=== PATIENT | male | born 1975 | race African-American/Black ===

== ENCOUNTER 2017-08-13 07:42 | Emergency (ER) | payer BC ==
[2017-08-13] MEDS ORDERED: HYDROCODONE/ACETAMINOPHEN 5-325 MG TABLET PO ONE (08:13)
[2017-08-13] MEDS ORDERED: CLONIDINE HCL 0.2 MG TABLET PO ONE (08:13)
--- NOTE | 2017-08-13 08:20 | ER Document Report ---
ED General - General Chief Complaint: Headache Stated Complaint: HEADACHE Time Seen by Provider: 08/13/17 08:08 Mode of Arrival: Ambulatory Information source: Patient - HPI Patient complains to provider of: headache Onset: Last week Onset/Duration: Intermittent Quality of pain: Dull Associated symptoms: None Exacerbated by: Denies Relieved by: Denies Similar symptoms previously: No Recently seen / treated by doctor: No Notes: Patient is a 42-year-old male with no medical problems. Patient states over the last couple of weeks he has had intermittent headaches that typically occur and resolve spontaneously. Over the last 2 days, the headache seems to be more severe and is not responding to his usual Tylenol. He denies any focal neurologic complaints. No difficulty with speech, vision, or gait. No fevers or chills. No neck pain. Denies prior history of hypertension. - Related Data Allergies/Adverse Reactions: No Known Allergies Allergy (Unverified 08/13/17 07:46) Past Medical History - General Information source: Patient - Social History Smoking Status: Unknown if Ever Smoked Chew tobacco use (# tins/day): No Frequency of alcohol use: None Drug Abuse: None Family History: Reviewed & Not Pertinent Patient has suicidal ideation: No Patient has homicidal ideation: No - Medical History Medical History: Negative Renal/ Medical History: Denies: Hx Peritoneal Dialysis Surgical Hx: Negative Review of Systems - Review of Systems Neurological/Psychological: Headaches -: Yes All other systems reviewed and negative Physical Exam - Vital signs Vitals: Temp Pulse Resp BP Pulse Ox 98.7 F 76 16 174/115 H 100 08/13/17 07:47 08/13/17 07:47 08/13/17 07:47 08/13/17 07:47 08/13/17 07:47 Interpretation: Normal - General General appearance: Appears well, Alert - HEENT Head: Normocephalic, Atraumatic Eyes: Normal Pupils: PERRL - Respiratory Respiratory status: No respiratory distress Chest status: Nontender Breath sounds: Normal Chest palpation: Normal - Cardiovascular Rhythm: Regular Heart sounds: Normal auscultation Murmur: No - Abdominal Inspection: Normal Distension: No distension Bowel sounds: Normal Tenderness: Nontender Organomegaly: No organomegaly - Back Back: Normal, Nontender - Extremities General upper extremity: Normal inspection, Nontender, Normal color, Normal ROM , Normal temperature General lower extremity: Normal inspection, Nontender, Normal color, Normal ROM , Normal temperature, Normal weight bearing. No: Raghu's sign - Neurological Neuro grossly intact: Yes Cognition: Normal Orientation: AAOx4 Poornima Coma Scale Eye Opening: Spontaneous Ballinger Coma Scale Verbal: Oriented Ballinger Coma Scale Motor: Obeys Commands Ballinger Coma Scale Total: 15 Speech: Normal Motor strength normal: LUE, RUE, LLE, RLE Sensory: Normal - Psychological Associated symptoms: Normal affect, Normal mood - Skin Skin Temperature: Warm Skin Moisture: Dry Skin Color: Normal Course - Re-evaluation Re-evalutation: 08/13/17 08:19 Patient is nonfocal neurologic exam. Patient's blood pressure is noted to be elevated. We will treat blood pressure, get head CT, and check basic labs. 08/13/17 09:11 Emergency department workup is unremarkable. Labs and CT are negative. Discussed hypertension with patient. Will start on low-dose antihypertensive medication. Discussed need to follow-up with primary care provider. No indication for further workup at this time. - Vital Signs Vital signs: Temp Pulse Resp BP Pulse Ox 98.7 F 76 16 174/115 H 100 08/13/17 07:47 08/13/17 07:47 08/13/17 07:47 08/13/17 07:47 08/13/17 07:47 - Laboratory Result Diagrams: 08/13/17 08:20 08/13/17 08:20 Laboratory results interpreted by me: 08/13/17 08:20 WBC 3.1 L - Diagnostic Test Radiology reviewed: Reports reviewed Radiology results interpreted by me: 08/13/17 09:11 neg per rads Discharge - Discharge Clinical Impression: Hypertension, Headache Disposition: HOME, SELF-CARE Instructions: Headache ([facility]), High Blood Pressure ([facility]) Additional Instructions: You have been started on a low-dose blood pressure medication. Follow-up with your primary care doctor. He should take your blood pressure every day and keep a log. Return to the emergency department if worse or for any other problems. Prescriptions: Lisinopril/Hydrochlorothiazide [Lisinopril-Hctz 20-12.5 mg Tab] 1 each PO DAILY #30 tablet
[2017-08-13 08:35] LABS: ABSOLUTE MONOCYTES (AUTO) 0.2 10^3/uL (0.1-1.4); ABSOLUTE NEUT (AUTO) 1.9 10^3/uL (1.7-8.2); BASOPHILS % (AUTO) 0.7 % (0-2); EOSINOPHILS % (AUTO) 0.9 % (0-6); HEMATOCRIT 42.4 % (37.9-51.0); HEMOGLOBIN 14.2 g/dL (13.5-17.0); HGB HCT DIFFERENCE 0.2; MEAN CORPUSCULAR HEMOGLOBIN 29.2 pg (27.0-33.4); MEAN CORPUSCULAR HGB CONC 33.5 g/dL (32.0-36.0); MEAN CORPUSCULAR VOLUME 87 fl (80-97); MONOCYTES % (AUTO) 6.7 % (3-13); RED BLOOD COUNT 4.87 10^6/uL (4.35-5.55); RED CELL DISTRIBUTION WIDTH 12.4 % (11.5-14.0); SEGMENTED NEUTROPHILS % (AUTO) 60.7 % (42-78); WHITE BLOOD COUNT 3.1 10^3/uL (4.0-10.5)
[2017-08-13 08:51] LABS: ALANINE AMINOTRANSFERASE 69 U/L (21-72); ALBUMIN 4.5 g/dL (3.5-5.0); ALKALINE PHOSPHATASE 64 U/L (38-126); ANION GAP 11 (5-19); ASPARTATE AMINO TRANSFERASE 37 U/L (17-59); BILIRUBIN,DIRECT 0.2 mg/dL (0.0-0.4); BILIRUBIN,TOTAL 1.2 mg/dL (0.2-1.3); BLOOD UREA NITROGEN 12 mg/dL (7-20); CALCIUM 9.4 mg/dL (8.4-10.2); CARBON DIOXIDE 28 mmol/L (22-30); CHLORIDE 105 mmol/L (98-107); CREATININE RESULT 0.99 mg/dL (0.52-1.25); GLUCOSE 94 mg/dL (75-110); SODIUM 143.8 mmol/L (137-145); TOTAL PROTEIN 7.7 g/dL (6.3-8.2)
--- NOTE | 2017-08-13 08:58 | RADIOLOGY REPORT (SQ) ---
EXAM DESCRIPTION: CT HEAD WITHOUT COMPLETED DATE/TIME: 08/13/2017 8:50 am REASON FOR STUDY: headache COMPARISON: None. TECHNIQUE: Axial images acquired through the brain without intravenous contrast. Images reviewed wi th bone, brain and subdural windows. Images stored on PACS. All CT scanners at this facility use dose modulation, iterative reconstruction, and/or weight based d osing when appropriate to reduce radiation dose to as low as reasonably achievable (ALARA). [facility]: Dose Right [facility]: CareDose [facility]: Dose Right [facility]: Teradose 4D [facility]: Humble Bundle RADIATION DOSE: Up-to-date CT equipment and radiation dose reduction techniques were employed. CTDIv ol: 64.6 mGy. DLP: 1163 mGy-cm. mGy. LIMITATIONS: None. FINDINGS: VENTRICLES: Normal size and contour. CEREBRUM: No masses. No hemorrhage. No midline shift. No evidence for acute infarction. Normal gra y/white matter differentiation. No areas of low density in the white matter. CEREBELLUM: No masses. No hemorrhage. No alteration of density. No evidence for acute infarction. EXTRAAXIAL SPACES: No fluid collections. No masses. ORBITS AND GLOBE: No intra- or extraconal masses. Normal contour of globe without masses. CALVARIUM: No fracture. PARANASAL SINUSES: No fluid or mucosal thickening. SOFT TISSUES: No mass or hematoma. OTHER: No other significant finding. IMPRESSION: NORMAL BRAIN CT WITHOUT CONTRAST. EVIDENCE OF ACUTE STROKE: NO. COMMENT: Quality ID # [id number]: Final reports with documentation of one or more dose reduction techniques (e.g., Automated exposure control, adjustment of the mA and/or kV according to patient size, use of iterative reconstruction technique) TECHNICAL DOCUMENTATION: JOB ID: [id number] [id number]- All Rights Reserved
[2017-08-13 09:43] VITALS: BP 142/97
== END 2017-08-13 09:43 | disposition home or self-care (01) ==
LOC: ER 07:42
DX: I10 Essential (primary) hypertension (principal); R51 Headache
CPT/HCPCS: 36415; 70450; 80053; 85025; 99284